=== PATIENT | male | born 1955 | race Caucasian/White ===

== ENCOUNTER 2019-08-23 08:20 | Outpatient (CLI) | payer MEDICARE, OTHER, SELFPAY ==
--- NOTE | 2019-08-23 | CT_ITS ---
WS: [id number] CT ABDOMEN AND PELVIS WITH CONTRAST HISTORY: GASTRIC and abdominal PAIN TECHNIQUE: Imaging performed of the abdomen and pelvis with IV contrast. Single phase imaging of the abdomen. Coronal and sagittal reformats are submitted. All CT scans at [facility] use at least one of these dose optimization techniques: automated exposure control; mA and/or kV adjustment per patient size (includes targeted exams where dose is matched to clinical indication); or iterativ e reconstruction. IV CONTRAST: Omnipaque 300; 95 mL IV. Oral contrast: Yes. DLP: 1181.94 mGycm COMPARISON: None available. Lower thorax: Lung bases are clear. Heart is normal size. Moderate size hiatal hernia. Hernia contain s oral contrast. Liver/biliary system: Normal size with no intrahepatic dilatation. Gallbladder: Normal. No gallstones or wall thickening. No pericholecystic fluid. Pancreas: Normal. Spleen: Normal. Adrenal glands: Normal. Right kidney: Normal. Left kidney: Normal. Aorta: Minimal atherosclerosis. Lymphadenopathy: None. Free fluid: None. GI tract: Stomach is not distended. There is no obstruction. Small bowel loops are normal caliber. Th ere is moderate diffuse constipation throughout the colon. No colon obstruction. The appendix is norm al. Abdominal wall: Small fat-containing umbilical hernia. Pelvis: Portion of the pelvis is being obscured by artifact from the LEFT hip arthroplasty. Urinary b ladder is unremarkable. No free fluid or adenopathy identified. Bones: Facet joint arthropathy and mild spondylitic changes. Prior LEFT hip arthroplasty. CT/CT abdomen pelvis w con* [id number] IMPRESSION: 1. Constipation with no obstruction. 2. Moderate hiatal hernia. 3. Prior LEFT hip arthroplasty.
[2019-08-23] MEDS: iohexol 300 mg/mL 100 mL Btl IV (10:19)
[2019-08-23] MEDS: iohexol 300 mg/mL 50 mL Btl PO (13:20)
== END 2019-08-23 08:21 | disposition home or self-care (01) ==
LOC: RADWPI 08:30
PROVIDERS: Family Provider Family Medicine; PCP Family Medicine; Visit Provider Family Medicine
DX: K59.00 Constipation, unspecified (principal); R10.13 Epigastric pain; K44.9 Diaphragmatic hernia without obstruction or gangrene; Z96.642 Presence of left artificial hip joint
CPT/HCPCS: 74177; Q9967

== ENCOUNTER → 2020-06-17 16:24 | Outpatient (BNVA) | payer MEDICARE, OTHER, SELFPAY | PROVIDERS: Family Provider Family Medicine; PCP Family Medicine; Visit Provider Family Medicine | DX: Z11.59 Encounter for screening for other viral diseases (principal) | CPT/HCPCS: 87635 ==

== ENCOUNTER 2020-11-09 13:15 | Outpatient (CLI) | payer MEDICARE, OTHER, SELFPAY ==
--- NOTE | 2020-11-09 13:35 | USCV_ITS ---
Delfino Michaels Age: 65 Gender: M : 1955 Exam Date: 11/09/2020 13:46 Ordering Phys: Katlin Nur Technologist: Laquita Denis Exam Location: [facility] [place] Indication: LT LEG PAIN HISTORY: Lower extremity edema. PROCEDURES: Venous duplex imaging was performed in only the left lower extremity. The following venous structures were evaluated: common femoral vein, profunda vein, proximal portion of the greater saphenous vein, superficial femoral vein, and the popliteal vein. FINDINGS: Normal 2-D Doppler and augmentation and compressibility throughout the lower extremity venous structures. Additional imaging through the proximal calf veins also reveals no thrombus. Limited evaluation of the greater saphenous vein is patent with no thrombus. CONCLUSIONS No DVT left lower extremity. Dr. Katia Dennis DO (Electronically Signed) Final Date: 09 Nov 2020 14:02 S
== END 2020-11-09 13:16 | disposition home or self-care (01) ==
LOC: RAD 13:32
PROVIDERS: PCP Family Medicine; Visit Provider Nurse Practitioner Family
DX: M79.662 Pain in left lower leg (principal)
CPT/HCPCS: 93971

== ENCOUNTER 2021-02-09 16:43 | Emergency (ER) | payer MEDICARE, OTHER, SELFPAY ==
[2021-02-09 15:38] VITALS: BP 138/68; PULSE 78; RESP 18; TEMP 36.7; O2SAT 94; BMI 32.1
--- NOTE | 2021-02-09 15:45 | ECG_ITS ---
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 Measurements Intervals [place] Rate: 75 P: 58 ME: 161 QRS: 31 QRSD: 113 T: 38 QT: 389 QTc: 435 Interpretive Statements SINUS RHYTHM WITH OCCASIONAL SUPRAVENTRICULAR PREMATURE COMPLEXES MODERATE INTRAVENTRICULAR CONDUCTION DELAY [110+ ms QRS DURATION] Compared to ECG 09/28/2017 10:17:54 Intraventricular conduction delay now present Sinus arrhythmia no longer present Electronically Signed On 02-11-2021 7:43:08 CDT by Shandra Huntley M.D. [id number]
--- NOTE | 2021-02-09 16:07 | ED_ITS ---
HPI - Syncope General: Chief Complaint: Syncope Stated Complaint: syncope History of Present Illness: HPI narrative: 65-year-old male presents emergency room complaining of syncopal episode. He was working outside on [employer] and she got lightheaded dizzy and passed out. He is complaining of a mild headache. He denies any chest pain difficulty breathing did not hurt himself when he passed out not strike his head he only reportedly was out briefly. Is never had this before. No history of heart disease or stroke. Or seizure. MD complaint: almost passed out and collapsed Onset (ago): minute(s) Prodromal symptoms: lightheaded Injuries sustained associated with event: none Associated symptoms: Deny abdominal pain, chest pain, fever(s), headache(s), lightheadedness, nausea, short of breath, vertigo, weakness or other Treatments prior to arrival: none Review of Systems Const: Denies: fever(s) ENMT: Denies: throat pain, ear or mastoid pain, nasal discharge or nasal congestion Card: Denies: chest pain or lightheadedness Resp: Denies: dyspnea, productive cough or non-productive cough GI: Denies: abdominal pain or nausea : Denies: flank pain, dysuria, urinary frequency or urinary urgency Skin/Breast: Denies: rash or pruritus Neuro: Denies: headache(s) or vertigo Physical Exam Const: COMMON NORMALS: no acute distress GENERAL APPEARANCE: cooperative and comfortable ORIENTATION/CONSCIOUSNESS: Yes awake, Yes oriented to person, Yes oriented to place and Yes oriented to time HENMT: COMMON NORMALS: normocephalic, atraumatic, hearing grossly normal bilaterally, external ears normal, EAC's normal, TM's normal bilaterally, Normal nasal mucous membranes and turbinates present, moist oral mucous membranes and oropharynx normal HEAD & SCALP: normocephalic and atraumatic NOSE: Normal nasal mucous membranes and turbinates present EXTERNAL EAR: Yes external ears normal EXTERNAL AUDITORY CANAL: EAC's normal TYMPANIC MEMBRANE: TM's normal bilaterally Neck/C-Spine: COMMON NORMALS: no JVD Resp: COMMON NORMALS: normal respiratory effort, No retractions, No use of accessory muscles and clear to auscultation bilaterally AUSCULTATION: clear to auscultation bilaterally Cardio: COMMON NORMALS: no JVD, regular rate, regular rhythm and No murmurs present (Cardio) RATE: regular rate RHYTHM: regular rhythm GI: COMMON NORMALS: Soft to palpation and No hepatosplenomegaly present AUSCULTATION: Yes normoactive bowel sounds PALPATION: Yes Soft to palpation, No Tenderness to palpation present (GI), No Guarding due to palpation present (GI) and Yes No hepatosplenomegaly present Extremity: COMMON NORMALS: normal to inspection, capillary refill normal, no clubbing, cyanosis or edema, no calf tenderness and no pedal edema Neuro: SENSORIUM/ORIENTATION: Yes oriented to person, Yes oriented to place and Yes oriented to time Skin: COMMON NORMALS: no rashes or lesions noted GENERAL SKIN EXAM: no rashes or lesions noted Course Vital Signs: Vital signs: Vital Signs Temperature 98.1 F 02/09/21 15:38 Pulse Rate 74 02/09/21 17:11 Respiratory Rate 18 02/09/21 17:11 Blood Pressure 153/59 02/09/21 17:11 Pulse Oximetry 97 02/09/21 17:11 MDM - Syncope MDM Narrative: Medical decision making narrative: Roommate recommending further evaluation. I had asked cardiology to come and see the patient. Patient was waiting in vertical flow for cardiology to arrive and he decided to leave. He had been evaluated did not have not have anything immediately acute but wanted further medication adjustment prior to discharge and cardiology's opinion on further evaluation patient as an outpatient. Patient contacted and advised he can return at any time if he has any further problems. Lab Data: Labs: Lab Results 02/09/21 02/09/21 02/09/21 Range/Units 16:30 16:51 16:51 WBC 13.1 H (4.0-10.0) 10^3/ uL RBC 4.38 (4.1-5.3) 10^6/u L Hgb 12.9 (11.7-16.6) g/dL Hct 38.7 L (42.0-52.0) % MCV 88.4 (80-94) fL MCH 29.5 (28.0-34.0) pg MCHC 33.3 (30.0-36.0) g/dL RDW 12.7 (12.1-15.1) % Plt Count 238 (130-400) 10^3/c mm MPV 10.2 (7.4-10.4) fL Neut % (Auto) 82.9 % Lymph % (Auto) 8.8 % [place] % (Auto) 6.5 % Eos % (Auto) 0.9 % Baso % (Auto) 0.5 % Neut # (Auto) 10.84 H (1.8-7.7) 10^3/u L Lymph # (Auto) 1.2 (0.8-4.8) 10^3/u L [place] # (Auto) 0.9 (0.2-0.9) 10^3/u L Eos # (Auto) 0.1 (0.0-0.8) 10^3/u L Baso # (Auto) 0.1 (0.0-0.1) 10^3/u L Nucleated RBC % (a uto) 0 % Nucleated RBCs # 0.0 /100WBC Sodium 137 (136-145) mmol/L Potassium 4.0 (3.5-5.1) mmol/L Chloride 102 (98-107) mmol/L Carbon Dioxide 26 (22-29) mmol/L Anion Gap 13.0 (5-19) BUN 21 (8-23) mg/dL Creatinine 1.3 H (0.7-1.2) mg/dL GFR Calculation 55.2 L (90-130) mL/min Glucose 117 H (65-115) mg/dL Calculated Osmolal ity 288 (285-295) mOsm/k g Calcium 8.7 (8.5-10.5) mg/dL Total Bilirubin 0.8 (0.15-1.2) mg/dL AST 15 (0-40) U/L ALT 11 (0-41) U/L Alkaline Phosphata se 66 (40-130) IU/L Creatine Kinase 75 (39-308) U/L Troponin T Baselin e (0-15) ng/L Total Protein 6.3 L (6.6-8.7) g/dL Albumin 3.8 (3.5-5.2) g/dL Globulin 2.5 (1.3-4.6) g/dL Urine Color Yellow (Yellow) Urine Appearance Clear (CLEAR) Urine pH 7 (5-7) Ur Specific Gravit y 1.010 (1.005-1.030) Urine Protein Neg (Negative) Urine Glucose (UA) Norm (Normal) Urine Ketones Negative (Negative) Urine Blood Neg (Negative) Urine Nitrate Negative (Negative) Urine Bilirubin Neg (Negative) Urine Urobilinogen Norm (Negative) mg/dL Ur Leukocyte Hannah ase Negative (Negative) 02/09/21 Range/Units 16:51 WBC (4.0-10.0) 10^3/ uL RBC (4.1-5.3) 10^6/u L Hgb (11.7-16.6) g/dL Hct (42.0-52.0) % MCV (80-94) fL MCH (28.0-34.0) pg MCHC (30.0-36.0) g/dL RDW (12.1-15.1) % Plt Count (130-400) 10^3/c mm MPV (7.4-10.4) fL Neut % (Auto) % Lymph % (Auto) % [place] % (Auto) % Eos % (Auto) % Baso % (Auto) % Neut # (Auto) (1.8-7.7) 10^3/u L Lymph # (Auto) (0.8-4.8) 10^3/u L [place] # (Auto) (0.2-0.9) 10^3/u L Eos # (Auto) (0.0-0.8) 10^3/u L Baso # (Auto) (0.0-0.1) 10^3/u L Nucleated RBC % (a uto) % Nucleated RBCs # /100WBC Sodium (136-145) mmol/L Potassium (3.5-5.1) mmol/L Chloride (98-107) mmol/L Carbon Dioxide (22-29) mmol/L Anion Gap (5-19) BUN (8-23) mg/dL Creatinine (0.7-1.2) mg/dL GFR Calculation (90-130) mL/min Glucose (65-115) mg/dL Calculated Osmolal ity (285-295) mOsm/k g Calcium (8.5-10.5) mg/dL Total Bilirubin (0.15-1.2) mg/dL AST (0-40) U/L ALT (0-41) U/L Alkaline Phosphata se (40-130) IU/L Creatine Kinase (39-308) U/L Troponin T Baselin e 11 (0-15) ng/L Total Protein (6.6-8.7) g/dL Albumin (3.5-5.2) g/dL Globulin (1.3-4.6) g/dL Urine Color (Yellow) Urine Appearance (CLEAR) Urine pH (5-7) Ur Specific Gravit y (1.005-1.030) Urine Protein (Negative) Urine Glucose (UA) (Normal) Urine Ketones (Negative) Urine Blood (Negative) Urine Nitrate (Negative) Urine Bilirubin (Negative) Urine Urobilinogen (Negative) mg/dL Ur Leukocyte Hannah ase (Negative) Discharge Plan Discharge Patient Disposition: Left Against Medical Advice Referrals: Phu Reed MD [Primary Care Provider] - Coding Level of Care Code ED Dining Service Worker for Chg Fwd Exam Comprehensive
[2021-02-09] MEDS: sodium chloride 0.9% 1,000 ML 999 ML IV (16:35)
[2021-02-09 16:44] LABS: Add Urine Microscopic? NO; Charge for UA Resulting for Rev
[2021-02-09 16:45] VITALS: BP 155/71; PULSE 72; RESP 17; O2SAT 99
[2021-02-09 16:48] LABS: Bilirubin Urine Neg (Negative); Blood Urine Neg (Negative); Glucose Urine UA Norm (Normal); Ketones Urine Negative (Negative); Leukocyte Esterase Urine Negative (Negative); Nitrate Urine Negative (Negative); Protein Urine Neg (Negative); Urine Appearance Clear (CLEAR); Urine Color Yellow (Yellow); Urobilinogen Urine Norm (Negative); pH Urine 7 (5-7)
[2021-02-09 17:02] LABS: Basophils # 0.1 10^3/uL (0.0-0.1); Basophils % 0.5 %; Eosinophils # 0.1 10^3/uL (0.0-0.8); Eosinophils % 0.9 %; Hematocrit 38.7 % (42.0-52.0); Hemoglobin 12.9 g/dL (11.7-16.6); Lymphocytes # 1.2 10^3/uL (0.8-4.8); Lymphocytes % 8.8 %; Mean Corpuscular HGB Conc 33.3 g/dL (30.0-36.0); Mean Corpuscular Hemoglobin 29.5 pg (28.0-34.0); Mean Corpuscular Volume 88.4 fL (80-94); Mean Platelet Volume 10.2 fL (7.4-10.4); Monocytes # 0.9 10^3/uL (0.2-0.9); Monocytes % 6.5 %; Neutrophils # 10.84 10^3/uL (1.8-7.7); Neutrophils % 82.9 %; Nucleated Red Blood Cells % 0 %; Platelet Count 238 10^3/cmm (130-400); Red Blood Count 4.38 10^6/uL (4.1-5.3); Red Cell Distribution Width 12.7 % (12.1-15.1); White Blood Count 13.1 10^3/uL (4.0-10.0)
[2021-02-09 17:11] VITALS: BP 153/59; PULSE 74; RESP 18; O2SAT 97
[2021-02-09 17:32] LABS: Troponin(5th) Baseline 11 ng/L (0-15)
[2021-02-09 17:34] LABS: Alanine Aminotransferase 11 U/L (0-41); Albumin Level 3.8 g/dL (3.5-5.2); Alkaline Phosphatase 66 IU/L (40-130); Aspartate Amino Transferase 15 U/L (0-40); Blood Urea Nitrogen 21 mg/dL (8-23); Calcium 8.7 mg/dL (8.5-10.5); Carbon Dioxide 26 mmol/L (22-29); Chloride 102 mmol/L (98-107); Creatine Phosphokinase 75 U/L (39-308); Globulin 2.5 g/dL (1.3-4.6); Glomerular Filtration Rate 55.2 mL/min (90-130); Glucose 117 mg/dL (65-115); Osmolality Calculated 288 mOsm/kg (285-295); Sodium 137 mmol/L (136-145); Total Bilirubin 0.8 mg/dL (0.15-1.2); Total Protein 6.3 g/dL (6.6-8.7)
== END 2021-02-09 17:14 | disposition left against medical advice (07) ==
PROVIDERS: Emergency Provider Family Medicine; PCP Family Medicine
DX: R55 Syncope and collapse (principal); R42 Dizziness and giddiness; R51.9 Headache, unspecified; Z53.29 Procedure and treatment not carried out because of patient's decision for other reasons
CPT/HCPCS: 80053; 81003; 82550; 84484; 85025; 93005; 96360; 99283; J7030

== ENCOUNTER 2021-10-21 10:08 | Emergency (ER) | payer MEDICARE, OTHER, SELFPAY ==
[2021-10-21 10:46] VITALS: BP 195/77; PULSE 73; RESP 18; TEMP 36.4; O2SAT 97; BMI 31.1
[2021-10-21 11:53] LABS: Add Urine Microscopic? NO; Charge for UA Resulting for Rev
[2021-10-21 11:55] LABS: Bilirubin Urine Neg (Negative); Blood Urine Neg (Negative); Glucose Urine UA Norm (Normal); Ketones Urine 1+ (Negative); Leukocyte Esterase Urine Negative (Negative); Nitrate Urine Negative (Negative); Protein Urine Neg (Negative); Urine Appearance Clear (CLEAR); Urine Color Yellow (Yellow); Urobilinogen Urine Neg (Negative); pH Urine 6.5 (5-7)
[2021-10-21 12:07] LABS: Basophils # 0.1 10^3/uL (0.0-0.1); Basophils % 1.1 %; Eosinophils # 0.3 10^3/uL (0.0-0.8); Eosinophils % 3.9 %; Hematocrit 44.4 % (42.0-52.0); Hemoglobin 14.6 g/dL (11.7-16.6); Lymphocytes # 1.8 10^3/uL (0.8-4.8); Lymphocytes % 24.4 %; Mean Corpuscular HGB Conc 32.9 g/dL (30.0-36.0); Mean Corpuscular Hemoglobin 29.3 pg (28.0-34.0); Mean Platelet Volume 10.5 fL (7.4-10.4); Monocytes # 0.6 10^3/uL (0.2-0.9); Monocytes % 8.1 %; Neutrophils # 4.66 10^3/uL (1.8-7.7); Neutrophils % 62.1 %; Nucleated Red Blood Cells % 0 %; Platelet Count 269 10^3/cmm (130-400); Red Blood Count 4.99 10^6/uL (4.1-5.3); Red Cell Distribution Width 13.5 % (12.1-15.1); White Blood Count 7.5 10^3/uL (4.0-10.0)
--- NOTE | 2021-10-21 12:15 | CT_ITS ---
WS: [id number] CT ABDOMEN PELVIS TECHNIQUE: Contrast-enhanced CT of the abdomen and pelvis with coronal and sagittal reformatted image s. CLINICAL INFORMATION: RLQ abdominal pain COMPARISON: August 23, 2019 DLP: 1959.[address] scans at [facility] use at least one of these dose optimization techniques: automated e xposure control; mA and/or kV adjustment per patient size (includes targeted exams where dose is matc hed to clinical indication); or iterative reconstruction. FINDINGS: Mild diffuse fatty infiltration of the liver. Normal gallbladder. Lung bases are well aerated. Normal GE junction. Normal portal vein and splenic vein. Fatty atrophy of the pancreas. Adrenal gland s are normal. Normal renal parenchymal enhancement. No hydronephrosis. Celiac and SMA are patent. Nor mal caliber abdominal aorta. Small fat-containing umbilical hernia. A few low-attenuation lesions in the spleen likely small hepatic cysts or hemangiomas. No periaortic lymphadenopathy. LEFT TARIK. Images in the pelvis are degraded due to beam hardening artifact. No evidence of high-grade small or large bowel obstruction. Normal ileocecal valve. Normal appendix in the RIGHT lower quadran t. No evidence of acute appendicitis. No free fluid in the abdomen or pelvis. No pelvic or inguinal l ymphadenopathy. CT/CT abdomen pelvis w con* [id number] IMPRESSION: 1. Gastric rugal thickening with mucosal enhancement extending into the duoden um compatible with gastroduodenitis. 2. No hydronephrosis in either kidney. Both ureters are decompressed. 3. Appendix in the RIGHT lower quadrant appears normal. This ascends cephalad in the RIGHT abdomen. No evidence of acute appendicitis. 4. No other acute findings.
--- NOTE | 2021-10-21 12:28 | ED_ITS ---
HPI - Abdominal Pain General: Chief Complaint: Abdominal Pain Stated Complaint: right sided abdominal pain Time Seen by Provider: 10/21/21 11:55 History of Present Illness: Patient is a 66-year-old male comes to the ED with abdominal pain. Symptoms started approximately 2 to 3 weeks ago. Says the pain is continued to progress and get more severe. His pain is located in the right lower quadrant of the abdomen and radiates to his right lower back. He rates the pain currently a 5 out of 10. He says sometimes with certain positions and movement his pain goes up to 8 out of 10. He also reports he will have episodes of more intense sharp pain in the abdomen as well. Endorses having some constipation and that the past couple days he has had daily small bowel movements. Denies any diarrhea, dysuria, hematuria, blood in stool, nausea/vomiting, fevers. Patient has not had any past surgeries in the abdomen. Associated Symptoms: Reports constipation; Denies chills, diarrhea, dysuria, fever(s), hematochezia, hematuria, nausea and vomiting Review of Systems Const: Denies: fever(s), chills or fatigue Eyes: Denies: change in vision or eye discomfort ENMT: Denies: throat pain, odynophagia, nasal discharge or nasal congestion Card: Denies: chest pain, palpitations, edema, swelling of feet/ankles, dyspnea on exertion or orthopnea Resp: Denies: dyspnea, productive cough or non-productive cough GI: Reports: abdominal pain and constipation; Denies: nausea, vomiting, diarrhea or hematochezia : Denies: flank pain, difficulty urinating, dysuria or hematuria Musc: Denies: neck pain, back pain or extremity swelling Skin/Breast: Denies: rash or new lesions Neuro: Denies: headache(s), numbness in extremities or weakness in extremities PFSH ED PFSH: Medical History Hypertension Surgical History No pertinent past surgical history Physical Exam Const: COMMON NORMALS: no acute distress, patient oriented x3, healthy appearing and alert GENERAL APPEARANCE: cooperative and comfortable HENMT: COMMON NORMALS: normocephalic HEAD & SCALP: normocephalic MOUTH: Normal oral and palatal mucosa present THROAT: posterior oropharynx normal and uvula midline Eye: COMMON NORMALS: Equal, round and reactive pupils present and conjunctivae normal CONJUNCTIVA: Yes conjunctivae normal PUPIL: Yes Equal, round and reactive pupils present Neck/C-Spine: COMMON NORMALS: supple GENERAL: Yes normal visual inspection Resp: COMMON NORMALS: normal respiratory effort, No retractions, No use of accessory muscles and clear to auscultation bilaterally AUSCULTATION: clear to auscultation bilaterally Cardio: COMMON NORMALS: regular rate, regular rhythm, S1 normal heart sound present, S2 normal heart sound present, No gallops present (Cardio), No clicks present (Cardio), No murmurs present (Cardio) and Peripheral pulses 2+ throughout RATE: regular rate RHYTHM: regular rhythm HEART SOUNDS: S1 normal heart sound present and S2 normal heart sound present PERIPHERAL PULSES: Peripheral pulses 2+ throughout GI: COMMON NORMALS: Normal to inspection, nondistended, normoactive bowel sounds present, Soft to palpation and no masses PALPATION: Yes Soft to palpation and Yes Tenderness to palpation present (GI) (Generalized tenderness on right side of abdomen.) Details: RLQ and RUQ : COMMON NORMALS: Yes no CVA tenderness BLADDER/KIDNEY EXAM: Yes no CVA tenderness Back/Pelvis: COMMON NORMALS: no CVA tenderness Extremity: COMMON NORMALS: normal to inspection Neuro: COMMON NORMALS: patient oriented x3 SENSORIUM/ORIENTATION: Yes alert GAIT: Yes Normal gait present Skin: GENERAL SKIN EXAM: dry skin Course Vital Signs: Vital signs: Vital Signs Temperature 97.5 F L 10/21/21 10:46 Pulse Rate 53 L 10/21/21 14:58 Respiratory Rate 16 10/21/21 14:11 Blood Pressure 161/73 10/21/21 14:58 Pulse Oximetry 98 10/21/21 14:58 MDM - Abdominal Pain Medical Decision Making Patient is a 66-year-old male comes to the ED with right-sided abdominal pain and some constipation. Symptoms have been going on now for about 2 weeks. Vitals stable. Patient appears nontoxic and in no acute distress or pain. He does have some generalized right sided abdominal tenderness both right upper and lower quadrants of the abdomen. All labs were unremarkable. CT of abdomen pelvis showed gastroduodenitis. He was discharged home with a prescription for pantoprazole and told to follow-up with his PCP in the next week for reevaluation. Return to ED precautions given. Patient understood agree with plan. Lab Data I reviewed the patient's lab results. : 10/21/21 11:55 10/21/21 11:55 Labs/Radiology: Radiology Impressions Abdomen/Pelvis CT 10/21/21 12:15 IMPRESSION: 1. Gastric rugal thickening with mucosal enhancement extending into the du odenum compatible with gastroduodenitis. 2. No hydronephrosis in either kidney. Both ureters are decompressed. 3. Appendix in the RIGHT lower quadrant appears normal. This ascends cephalad in the RIGHT abdomen. No evidence of acute appendicitis. 4. No other acute findings. Laboratory Results WBC 7.5 10^3/uL (4.0-10.0) 10/21/21 11:55 RBC 4.99 10^6/uL (4.1-5.3) 10/21/21 11:55 Hgb 14.6 g/dL (11.7-16.6) 10/21/21 11:55 Hct 44.4 % (42.0-52.0) 10/21/21 11:55 MCV 89.0 fl (80-94) 10/21/21 11:55 MCH 29.3 pg (28.0-34.0) 10/21/21 11:55 MCHC 32.9 g/dL (30.0-36.0) 10/21/21 11:55 RDW 13.5 % (12.1-15.1) 10/21/21 11:55 Plt Count 269 10^3/cmm (130-400) 10/21/21 11:55 MPV 10.5 fL (7.4-10.4) H 10/21/21 11:55 Neut % (Auto) 62.1 % 10/21/21 11:55 Lymph % (Auto) 24.4 % 10/21/21 11:55 [place] % (Auto) 8.1 % 10/21/21 11:55 Eos % (Auto) 3.9 % 10/21/21 11:55 Baso % (Auto) 1.1 % 10/21/21 11:55 Neut # (Auto) 4.66 10^3/uL (1.8-7.7) 10/21/21 11:55 Lymph # (Auto) 1.8 10^3/uL (0.8-4.8) 10/21/21 11:55 [place] # (Auto) 0.6 10^3/uL (0.2-0.9) 10/21/21 11:55 Eos # (Auto) 0.3 10^3/uL (0.0-0.8) 10/21/21 11:55 Baso # (Auto) 0.1 10^3/uL (0.0-0.1) 10/21/21 11:55 Nucleated RBC % (auto) 0 % 10/21/21 11:55 Nucleated RBCs # 0.0 /100WBC 10/21/21 11:55 Sodium 141 mmol/L (136-145) 10/21/21 11:55 Potassium 4.2 mmol/L (3.5-5.1) 10/21/21 11:55 Chloride 104 mmol/L (98-107) 10/21/21 11:55 Carbon Dioxide 26 mmol/L (22-29) 10/21/21 11:55 Anion Gap 15.2 (5-19) 10/21/21 11:55 BUN 11 mg/dL (8-23) 10/21/21 11:55 Creatinine 1.1 mg/dL (0.7-1.2) 10/21/21 11:55 GFR Calculation 66.8 mL/min (90-130) L 10/21/21 11:55 Glucose 90 mg/dL (65-115) 10/21/21 11:55 Calculated Osmolality 291 mOsm/kg (285-295) 10/21/21 11:55 Calcium 9.7 mg/dL (8.5-10.5) 10/21/21 11:55 Total Bilirubin 0.9 mg/dL (0.15-1.2) 10/21/21 11:55 AST 20 U/L (0-40) 10/21/21 11:55 ALT 17 U/L (0-41) 10/21/21 11:55 Alkaline Phosphatase 76 IU/L (40-130) 10/21/21 11:55 Total Protein 7.2 g/dL (6.6-8.7) 10/21/21 11:55 Albumin 5.0 g/dL (3.5-5.2) 10/21/21 11:55 Globulin 2.2 g/dL (1.3-4.6) 10/21/21 11:55 Lipase 23 U/L (13-60) 10/21/21 11:55 Urine Color Yellow (Yellow) 10/21/21 11:39 Urine Appearance Clear (CLEAR) 10/21/21 11:39 Urine pH 6.5 (5-7) 10/21/21 11:39 Ur Specific [place] 1.010 (1.005-1.030) 10/21/21 11:39 Urine Protein Neg (Negative) 10/21/21 11:39 Urine Glucose (UA) Norm (Normal) 10/21/21 11:39 Urine Ketones 1+ (Negative) H 10/21/21 11:39 Urine Blood Neg (Negative) 10/21/21 11:39 Urine Nitrate Negative (Negative) 10/21/21 11:39 Urine Bilirubin Neg (Negative) 10/21/21 11:39 Urine Urobilinogen Neg mg/dL (Negative) 10/21/21 11:39 Ur Leukocyte Esterase Negative (Negative) 10/21/21 11:39 Discharge Plan Discharge Patient Disposition: Home Clinical Impression: Gastroduodenitis Condition: Stable Prescriptions: New pantoprazole 40 mg tablet,delayed release (DR/EC) 40 mg PO DAILY 28 Days Qty: 30 0RF Discharge Orders: Discharge ED (Routine); Ordered 10/21/21 Ordered By: Phu Mcguire Referrals: Phu Reed MD [Primary Care Provider] - Discharge Diet: Advance as tolerated Discharge Activity: Increase activity as tolerated Patient Instructions: Gastritis (ED), Duodenitis (ED) Activity Restrictions/Additional Instructions: Follow-up with medical provider as directed at your next scheduled appointment.Take medications as prescribed. Avoid eating spicy or acidic foods that can worsen your symptoms. Return to the ER or your medical provider if condition worsens. Please read and understand discharge instructions. Thank you for choosing [facility] for your healthcare needs today. Please realize this is an emergency room and that we are providing you with a medical screening exam and this may not be complete and all inclusive of all the testing and or work up that you may need to determine your ailment or severity of your illness. It is very important that you follow up as instructed or that you return to the Emergency Department should you have concerns or if your condition changes or worsens in any way. Coding Level of Care Code ED Assembly And Packing Supervisor for Chg Fwd Exam Comprehensive
[2021-10-21 12:36] VITALS: BP 166/66; PULSE 64; RESP 16; O2SAT 100
[2021-10-21] MEDS: sodium chloride 0.9% 500 ML 999 ML IV (12:42)
[2021-10-21 12:58] LABS: Alanine Aminotransferase 17 U/L (0-41); Alkaline Phosphatase 76 IU/L (40-130); Anion Gap 15.2 (5-19); Aspartate Amino Transferase 20 U/L (0-40); Blood Urea Nitrogen 11 mg/dL (8-23); Calcium 9.7 mg/dL (8.5-10.5); Carbon Dioxide 26 mmol/L (22-29); Chloride 104 mmol/L (98-107); Globulin 2.2 g/dL (1.3-4.6); Glomerular Filtration Rate 66.8 mL/min (90-130); Glucose 90 mg/dL (65-115); Lipase 23 U/L (13-60); Osmolality Calculated 291 mOsm/kg (285-295); Potassium 4.2 mmol/L (3.5-5.1); Sodium 141 mmol/L (136-145); Total Bilirubin 0.9 mg/dL (0.15-1.2); Total Protein 7.2 g/dL (6.6-8.7)
[2021-10-21] MEDS: iohexol 300 mg/mL 100 mL Btl IV (13:55)
[2021-10-21 14:11] VITALS: BP 173/61; PULSE 58; RESP 16; O2SAT 97
[2021-10-21 14:58] VITALS: BP 161/73; PULSE 53; O2SAT 98
== END 2021-10-21 15:00 | disposition home or self-care (01) ==
PROVIDERS: Emergency Provider Physician Assistant; PCP Family Medicine
DX: K29.90 Gastroduodenitis, unspecified, without bleeding (principal); R10.9 Unspecified abdominal pain; K59.00 Constipation, unspecified
CPT/HCPCS: 74177; 80053; 81003; 83690; 85025; 99283; J7040; Q9967

== ENCOUNTER → 2021-11-05 09:18 | Outpatient (BNVA) | payer MEDICARE, OTHER, SELFPAY | PROVIDERS: PCP Family Medicine; Visit Provider Family Medicine | DX: Z13.220 Encounter for screening for lipoid disorders (principal); E53.8 Deficiency of other specified B group vitamins; R73.03 Prediabetes; M10.9 Gout, unspecified | CPT/HCPCS: 80061; 82607; 83036; 84550 ==

== ENCOUNTER 2021-11-18 07:54 | Outpatient (CLI) | payer MEDICARE, OTHER, SELFPAY ==
--- NOTE | 2021-11-18 08:04 | USCV_ITS ---
Delfino Michaels Age: 66 Gender: M : 1955 Exam Date: 11/18/2021 08:09 Ordering Phys: Phu Reed MD Technologist: Exam Location: [facility] [place] Indication: lt side bruit Risk Factors: Previous Vascular Surgery: Right Brachial BP: / Left Brachial BP: / Right Left Velocity (cm/s) Spectral Plaque Velocity (cm/s) Spectral Plaque Syst/Diast Broadening Syst/Diast Broadening 68.40/ 15.40 Prox CCA 60.00 / 14.30 63.90/ 13.20 Mid CCA 53.70 / 9.80 59.50/ 11.00 Distal CCA 66.30 / 14.30 70.70/ 19.70 Hetro Prox ICA 66.30 / 16.10 Hetro 69.80/ 16.10 Mid ICA 62.70 / 17.00 89.50/ 26.00 Distal ICA 54.60 / 11.60 125.70 ECA 86.90 1.31 ICA/CCA 1.00 Antegrade Vertebral Antegrade 51.90/ 14.30 cm/s 25.20/ 8.20 cm/s Tri Subclavian Tri 88.60 86.90 CONCLUSIONS Right ICA stenosis <50%. Mild atheromatous plaque right carotid bulb/ICA. Left ICA stenosis <50%. Mild atheromatous plaque left carotid bulb/ICA. Normal antegrade Doppler flow noted in the right vertebral artery. Normal antegrade Doppler flow noted in the left vertebral artery. Sanju Garibay MD (Electronically Signed) Final Date: 18 Nov 2021 09:07 S
== END 2021-11-18 07:55 | disposition home or self-care (01) ==
LOC: RAD 07:57
PROVIDERS: PCP Family Medicine; Visit Provider Family Medicine
DX: I65.23 Occlusion and stenosis of bilateral carotid arteries (principal); R09.89 Other specified symptoms and signs involving the circulatory and respiratory systems
CPT/HCPCS: 93880

== ENCOUNTER → 2022-02-17 10:30 | Outpatient (BNVA) | payer MEDICARE, OTHER, SELFPAY | PROVIDERS: PCP Family Medicine; Visit Provider Surgery | DX: R10.9 Unspecified abdominal pain (principal); K29.70 Gastritis, unspecified, without bleeding | CPT/HCPCS: 99203 ==

== ENCOUNTER 2022-03-03 07:34 | Outpatient (CLI) | payer MEDICARE, OTHER, SELFPAY ==
--- NOTE | 2022-03-03 07:30 | MR_ITS ---
WS: [id number] MRA HEAD TECHNIQUE: Axial 3-D TOF images obtained with axial images and axial, sagittal, and coronal 2-D refor matted images. CLINICAL INFORMATION: Recent TIA COMPARISON: None. FINDINGS: Distal vertebral bodies are patent. Basilar artery is patent. Normal vascularity to the NUT STEAMER territory bilaterally. Patent LEFT posterior communicating artery. Both ICAs are patent at the skull base. Tortuous cavernous carotid arteries. Normal vascularity to th e PANCHITO and MCA territories bilaterally. No evidence of high-grade proximal stenosis or aneurysm. Ryne t anterior communicating artery. MR/MR angio head wo con [id number] IMPRESSION: Normal intracranial MRA.
--- NOTE | 2022-03-03 07:45 | MR_ITS ---
WS: [id number] MRI HEAD WITH CONTRAST TECHNIQUE: Sagittal T1, T2 axial, T2 axial FLAIR, axial susceptibility weighted imaging, axial diffus ion weighted images, and coronal T2 images were obtained. Pre and post-T1 axial and post T1 coronal i mages. ADC and FSPGR images. CLINICAL INFORMATION: Recent TIA COMPARISON: None. FINDINGS: No evidence of restricted diffusion to suggest acute ischemia. Ventricular system and basal cisterns are patent. Mild small vessel changes. Mild parenchymal volume loss. Small amount of chronic gliosis RIGHT posterior frontal lobe likely due to prior ischemia. Tiny chronic lacunar infarct RIGHT cerebel lum. Normal vascular flow voids at the skull base. No extra axial fluid collections. No evidence of m ass or mass effect. Mild mucosal thickening ethmoid air cells. Mastoid air cells are well aerated. Normal posterior nasop harynx. No hemosiderin on the susceptibly weighted images. Normal optic chiasm and pituitary infundib ulum. Mild symmetric atrophy Temporal lobes and hippocampal formations. No abnormal intracranial enha ncement. Normal dural sinuses. Cavernous sinuses and Meckel's cave are normal. MR/MR head wo/w con [id number] IMPRESSION: 1. No evidence of restricted diffusion to suggest acute ischemia. 2. Mild small vessel changes with mild parenchymal volume loss. 3. Small area of gliosis in the RIGHT posterior frontal lobe likely due to chr onic infarct. 4. Tiny chronic lacunar infarct RIGHT cerebellum. 5. No hemosiderin on susceptibly weighted images. 6. Mild symmetric atrophy of the temporal lobes and hippocampal formations. 7. No abnormal gadolinium enhancement.
[2022-03-03] MEDS: gadobenate dimeglumine 20 mL vial IV (08:46)
== END 2022-03-03 07:35 | disposition home or self-care (01) ==
LOC: RAD 07:34
PROVIDERS: PCP Family Medicine; Visit Provider Family Medicine
DX: G45.9 Transient cerebral ischemic attack, unspecified (principal); G93.89 Other specified disorders of brain; I63.9 Cerebral infarction, unspecified; G31.9 Degenerative disease of nervous system, unspecified
CPT/HCPCS: 70544; 70553

== ENCOUNTER 2022-03-09 14:23 | Outpatient (CLI) | payer MEDICARE, OTHER, SELFPAY ==
--- NOTE | 2022-03-09 14:15 | USCV_ITS ---
XeniaPhuny Age: 66 Gender: M : 1955 Exam Date: 03/09/2022 14:53 Ordering Phys: Phu Reed MD Technologist: SARAH [place] [facility] [place]: RT ARM PAIN AND SWELLING. PROCEDURES: Venous duplex imaging was performed in only the right upper extremity. The following venous structures were evaluated: internal jugular vein, subclavian vein, axillary vein, and brachial veins. In addition, the basilic vein, cephalic vein, radial vein, and ulnar vein. FINDINGS: OCCLUDING THROMBUS FROM BASILIC AT ELBOW TO BASILIC AT AXILLARY. OTHER ARM VEINS VISUALIZED APPEAR NORMAL. CONCLUSIONS Occlusive SVT basilic vein at elbow extending to axilla in DEBORAH Michel right Upper extremity veins patent. Sanju Garibay MD (Electronically Signed) Final Date: 10 March 2022 13:28 S
== END 2022-03-09 14:24 | disposition home or self-care (01) ==
LOC: RAD 14:23
PROVIDERS: PCP Family Medicine; Visit Provider Family Medicine
DX: M79.89 Other specified soft tissue disorders (principal); I82.611 Acute embolism and thrombosis of superficial veins of right upper extremity; R53.81 Other malaise; R53.83 Other fatigue; R25.2 Cramp and spasm; I10 Essential (primary) hypertension; I63.9 Cerebral infarction, unspecified; Z51.81 Encounter for therapeutic drug level monitoring
CPT/HCPCS: 80053; 80061; 83735; 84439; 84443; 85025; 93971

== ENCOUNTER 2022-04-01 09:24 | Day surgery (SDC) | payer MEDICARE, OTHER, SELFPAY ==
[2022-03-30 13:03] VITALS: BMI 30.4
[2022-04-01 09:46] VITALS: BP 151/54; PULSE 56; RESP 18; TEMP 36; O2SAT 97
[2022-04-01] MEDS: sodium chloride 0.9% 1,000 ML 30 ML IV (10:01)
--- NOTE | 2022-04-01 10:46 | ANES.PREANE2 ---
Pre-Anesthetic Assessment Height/Weight: Height 1.73 m Weight 90.718 kg Temp Pulse Resp BP Pulse Ox O2 Del Method 96.8 F L 56 L 18 151/54 97 04/01/22 09:46 04/01/22 09:46 04/01/22 09:46 04/01/22 09:46 04/01/22 09:46 04/01/22 09:46 Preop Diagnosis: Abd pain Operation Date: 04/01/22 11:15 Proposed Procedures p EGD 11701,K29.70,R10.9(Not Applicable) - Rajeev Buenrostro DO Familial anesthetic complications: none Was Beta Lina taken within 24 hours: N/A Was Clonidine taken within 24 hours: N/A Last intake: Intake Last Liquid Date 03/31/22 Last Liquid Time 23:30 Last Solid Date 03/31/22 Last Solid Time 22: Last Intake: 23:30 Social No alcohol and No tobacco Exam alert, oriented x 3, clear to auscultation bilaterally and regular rate & rhythm Airway Submandibular: within normal limits Cervical ROM: within normal limits Mallampati: Class I Dentition: full Pulmonary Hx PE 2017 CV/HEM Deep Vein Thrombosis and Hypertension Factor V None reported Hepatic None reported GI None reported Metabolic None reported Musc/skel Lower Back Pain and Osteoarthritis/DJD Neuropsych Cerebrovascular Accident (L side weakness 1 month ago, Mostly resolved) and Seizure Anesthetic Plan ASA status: 3 Anesthesia: MAC Risk of > 500 ml blood loss (7ml/kg in children): No Medications/Allergies Home Medications Medication Instructions Recorded Confirmed Last Taken Type allopurinol 300 mg tablet 300 mg PO DAILY 02/09/22 04/01/22 Unknown History hydrochlorothiazide 25 mg tablet 25 mg PO DAILY 02/09/22 03/30/22 03/30/22 History valsartan 160 mg tablet 160 mg PO BID 03/09/22 04/01/22 03/31/22 History apixaban 5 mg tablet (Eliquis) 5 mg PO BID #60 tabs 03/25/22 03/30/22 03/30/22 Rx Allergies Allergy/AdvReac Type Severity Reaction Status Date / Time midazolam [From Versed] Allergy Unknown Verified 02/17/22 10:55 morphine Allergy ADR-Vomitin Verified 02/17/22 10:55 g Current Medications Generic Name Dose Route Start Last Admin Trade Name Freq PRN Reason Stop Dose Admin Sodium Chloride 1,000 mls @ 30 mls/hr 04/01/22 09:45 04/01/22 10:01 Sodium Chloride 0.9% IV 04/02/22 09:44 30 mls/hr .Q24H BLANCA Administration PFSH Anesthesia Medical History Hypertension Surgical History History of colonoscopy History of hip replacement History of repair of right rotator cuff No pertinent past surgical history Social History Smoking and tobacco status: former smoker Data Anesthesia Cardiac Studies: No Data to Display
--- NOTE | 2022-04-01 11:53 | PM.HP ---
Providers/Chief Complaint Primary Care Provider: Phu Reed MD Chief Complaint: gastritis, unspecified, w/o bleeding History of Present Illness Delfino Michaels is a 66 year old male here for EGD Medications/Allergies Home Medications Medication Instructions Recorded Confirmed Last Taken Type allopurinol 300 mg tablet 300 mg PO DAILY 02/09/22 04/01/22 Unknown History hydrochlorothiazide 25 mg tablet 25 mg PO DAILY 02/09/22 03/30/22 03/30/22 History valsartan 160 mg tablet 160 mg PO BID 03/09/22 04/01/22 03/31/22 History apixaban 5 mg tablet (Eliquis) 5 mg PO BID #60 tabs 03/25/22 03/30/22 03/30/22 Rx Allergies Allergy/AdvReac Type Severity Reaction Status Date / Time midazolam [From Versed] Allergy Unknown Verified 02/17/22 10:55 morphine Allergy ADR-Vomitin Verified 02/17/22 10:55 g PFSH Acute PFSH: Medical History Hypertension Surgical History History of colonoscopy History of hip replacement History of repair of right rotator cuff No pertinent past surgical history Social History Smoking and tobacco status: former smoker Vitals/I&O/Wt Last Vital Signs Temp 96.8 F L 04/01/22 09:46 Pulse 56 L 04/01/22 09:46 Resp 18 04/01/22 09:46 BP 151/54 04/01/22 09:46 Pulse Ox 97 04/01/22 09:46 O2 Del Method 04/01/22 09:46 Weight last 48 hrs Weight 200 lb A&P Assessment and plan (1) Epigastric abdominal pain: Plan EGD Attestations Medical Necessity Statement*: home Coding Level of Care Code Acute Department Store Manager for Chg Fwd Diagnoses Epigastric abdominal pain R10.13
[2022-04-01 12:03] VITALS: BP 120/70; PULSE 59; RESP 16; TEMP 36.2; O2SAT 96
[2022-04-01 12:14] VITALS: BP 114/70; PULSE 55; RESP 18; O2SAT 99
--- NOTE | 2022-04-01 14:10 | ANE.PACU2 ---
Inpatient post-anesthesia follow up: Airway intact: Yes Vital signs: Temperature 97.2 F Pulse Rate 55 Respiratory Rate 18 Blood Pressure 114/70 Pulse Oximetry 99 Oxygen Delivery Me thod Room Air Oxygen Flow Rate 6 Fraction of Inspir ed Oxygen Hydration adequate: Yes Nausea and vomiting: No Pain level: 1 Mental status: Baseline
== END 2022-04-01 12:25 | disposition home or self-care (01) ==
PROVIDERS: PCP Family Medicine; Visit Provider Surgery
PROC: 0DJ08ZZ Inspection of Upper Intestinal Tract, Via Natural or Artificial Opening Endoscopic (ICD-10-PCS; CPT 43235; principal; 2022-04-01 11:15)
DX: K29.50 Unspecified chronic gastritis without bleeding (principal); R10.13 Epigastric pain; B96.81 Helicobacter pylori [H. pylori] as the cause of diseases classified elsewhere; Z86.718 Personal history of other venous thrombosis and embolism; I10 Essential (primary) hypertension; Z86.73 Personal history of transient ischemic attack (TIA), and cerebral infarction without residual deficits; Z87.891 Personal history of nicotine dependence
CPT/HCPCS: 43239; 88305; 88342; J7030

== ENCOUNTER → 2022-04-15 11:50 | Outpatient (BNVA) | payer MEDICARE, OTHER, SELFPAY | PROVIDERS: PCP Family Medicine; Visit Provider Surgery | DX: Z09 Encounter for follow-up examination after completed treatment for conditions other than malignant neoplasm (principal); K29.70 Gastritis, unspecified, without bleeding; B96.81 Helicobacter pylori [H. pylori] as the cause of diseases classified elsewhere | CPT/HCPCS: 99212 ==

== ENCOUNTER 2022-04-28 08:56 | Outpatient (CLI) | payer MEDICARE, OTHER, SELFPAY ==
--- NOTE | 2022-04-28 | ECG_ITS ---
[facility] Test Date: 2022-04-28 Pat Name: Delfino Michaels Department: Room: Gender: Male Coding Compliance Specialist: : 1955 Requested By: Phu Hernandez Order Number: [id number] Gretchen MD: Adan Suazo M.D. Interpretive Statements NAME OF STUDY: LEXISCAN SESTAMIBI STRESS TEST INDICATION: MERCER/CP, PROCEDURE: At the baseline, the EKG revealed sinus bradycardia with some nonspecific T wave changes in the inferior leads. The baseline heart was 59 bpm with a blood pressue of 154/91 mm of Hg Lexiscan was infused over a period of 20 seconds. A total of 0.4 milligrams of Lexiscan was infused. The stress phase was continued for a total of 5 minutes. Heart rate at the end of the stress phase was 71 bpm with a blood pressure 161/96 mm of Hg. The EKG at the peak infusion revealed no significant changes. Sestamibi was injected 20 seconds after the Lexiscan infusion. Heart rate at the end of the recovery phase was 59 bpm with a blood pressure of 171/97 mm of Hg. CONCLUSION: 1. No significant EKG changes with the LexiScan infusion 2. No LexiScan induced chest pain or cardiac arrhythmia 3. Normal blood pressure and heart rate response 4. Sestamibi/sestamibi perfusion scan pending; see separate report. Electronically Signed On 05-06-2022 7:22:56 CDT by Adan Suazo M.D. [id number]
--- NOTE | 2022-04-28 09:10 | NMCV_ITS ---
NM antonina perf SPECT r/s* [id number] LupeDelfino bhatia Age: 66 Gender: M : 1955 Exam Date: 04/28/2022 10:41 Ordering Phys: Phu Reed MD Technologist: ALYSON Ojeda Exam Location: [facility] Indications: CHEST PAIN STRESS TEST Please see separate stress test report in [facility] for full findings IMAGE PROTOCOL Rest/Stress 1 Lexiscan Day Radiopharmaceutical Dose (mCi) Administration Site Administered by Rest: Tc-99m 10.9 IV ALYSON Mcleod Sestamibi Stress:Tc-99m 32.8 IV ALYSON Ojeda Sestamidiane Rest: 28-Apr-2022 60 Discovery 630 Stress: 28-Apr-2022 30 Discovery 630 0.4mg Lexiscan. Images obtained in supine and prone position. SPECT RESULTS Technical Quality: Excellent Raw Data Analysis: Normal Image Corrections: No attenuation or motion correction applied Summed Stress Score: 0 Summed Rest Score: 0 Summed Difference Score: 0 PERFUSION FINDINGS Uniform myocardial tracer uptake with no significant perfusion abnormalities FUNCTIONAL RESULTS (calculated via Gated SPECT) Stress Image LV EF (%): 74 Stress EDV (mL):97 TID: 1.13 Stress ESV (mL):25 FUNCTIONAL FINDINGS: Segmental wall motion analysis revealing no gross wall motion abnormalities IMPRESSIONS 1. Myocardial perfusion imaging revealing fairly uniform myocardial tracer uptake with no significant perfusion normalities. 2. Normal LV ejection fraction 74%. 3. LV wall motion analysis revealing no gross wall motion normalities. 4. Normal LV volume Low probability for coronary ischemia, based on the above findings Dr Adan Suazo MD FACC (Electronically Signed) Final Date: 28 April 2022 17:49 S
[2022-04-28 09:19] VITALS: BMI 30.7
[2022-04-28] MEDS: regadenoson 0.4 Mg/5 ml Syringe IVP (11:15)
[2022-04-28 12:22] VITALS: BP 171/97; PULSE 59
== END 2022-04-28 08:57 | disposition home or self-care (01) ==
LOC: CDL 09:03
PROVIDERS: PCP Family Medicine; Visit Provider Family Medicine
DX: R06.09 Other forms of dyspnea (principal); R07.9 Chest pain, unspecified
CPT/HCPCS: 78452; 93017; A9500; J2785